=== PATIENT | male | born 1950 | race Caucasian/White ===

== ENCOUNTER 2019-06-30 12:37 | Emergency (ER) | payer MEDICARE, OTHER ==
--- NOTE | 2019-06-30 13:40 | EDM.PDOC ---
ED HPI GENERAL MEDICAL PROBLEM - General Chief Complaint: General Stated Complaint: HIGH B/P Time Seen by Provider: 06/30/19 13:40 Source of Information: Reports: Patient History Limitations: Reports: No Limitations - History of Present Illness INITIAL COMMENTS - FREE TEXT/NARRATIVE: HISTORY AND PHYSICAL: History of present illness: Patient is a 69-year-old male presents to the ED with complaint of elevated blood pressure. Patient states that yesterday he felt like he was dizzy and having an episode of vertigo so he checked his blood pressure. Patient states that his BP was elevated to 160 systolic. He states he has been up all night worried about his blood pressure and taking it every hour. He reports it has consistently been 150-160 systolic. He denies significant past medical history. He does smoke daily. He states he is no longer feeling dizzy. He denies chest pain, shortness of breath, headache, vertigo. EKG shows new onset atrial fibrillation, case signed over to Dr. Light for further evaluation Review of systems: As per history of present illness and below otherwise all systems reviewed and negative. Past medical history: As per history of present illness and as reviewed below otherwise noncontributory. Surgical history: As per history of present illness and as reviewed below otherwise noncontributory. Social history: No reported history of drug or alcohol abuse. Family history: As per history of present illness and as reviewed below otherwise noncontributory. Physical exam: General: Patient sitting comfortably in no acute distress and nontoxic appearing HEENT: Atraumatic, normocephalic, pupils reactive, negative for conjunctival pallor or scleral icterus, mucous membranes moist, throat clear, neck supple, nontender, trachea midline. No meningeal signs. Lungs: Clear to auscultation, breath sounds equal bilaterally, chest nontender. Heart: S1S2, irregular, negative for clicks, rubs, or overt murmur. Abdomen: Soft, nondistended, nontender. Negative for masses or hepatosplenomegaly. Negative for costovertebral tenderness. No rigidity, rebound , guarding. Pelvis: Stable nontender. Genitourinary: Deferred. Rectal: Deferred. Extremities: Atraumatic, negative for cords or calf pain. Neurovascular unremarkable. Neuro: Awake, alert, oriented. Cranial nerves II through XII unremarkable. Cerebellum unremarkable. Motor and sensory unremarkable throughout. Exam nonfocal. Notes: Diagnostics: EKG, CBC, CMP, Troponin, PT/INR Therapeutics: [] Prescriptions: Impression: [] Plan: [] Definitive disposition and diagnosis as appropriate pending reevaluation and review of above. - Related Data Allergies Allergy/AdvReac Type Severity Reaction Status Date / Time No Known Allergies Allergy Verified 06/30/19 13:13 Home Meds: Home Meds Aspirin [Lo-Dose Aspirin EC] 81 mg PO DAILY 06/30/19 [History] Past Medical History - Past Health History Medical/Surgical History: Denies Medical/Surgical History Other Respiratory History: Sleep apnea with CPAP machine Other Musculoskeletal History: Arthritis to Left hand, REcent treatment for GOUT injection and oral steroids completed 3 weeks ago(reports surgeon aware) - Past Surgical History Other GI Surgeries/Procedures: Inguinal Hernia Repair and umbilical hernia repair Social & Family History - Family History Family Medical History: Noncontributory - Tobacco Use Smoking Status *Q: Current Every Day Smoker Years of Tobacco use: 40 Packs/Tins Daily: 1 - Recreational Drug Use Recreational Drug Use: No ED ROS GENERAL - Review of Systems Review Of Systems: Comprehensive ROS is negative, except as noted in HPI. ED EXAM, GENERAL - Physical Exam Exam: See Below (see dictation) Course - Vital Signs Last Recorded V/S: Last Vital Signs Temp 97.1 F 06/30/19 13:12 Pulse 85 06/30/19 13:12 Resp 18 06/30/19 13:12 BP 141/97 H 06/30/19 13:12 Pulse Ox 94 L 06/30/19 13:12 - Orders/Labs/Meds Orders: Active Orders 24 hr Category Date Time Status Cardiac Monitoring [RC] . DIRECTED Care 06/30/19 13:55 Active EKG Documentation Completion [RC] STAT Care 06/30/19 13:39 Inactive EKG Documentation Completion [RC] STAT Care 06/30/19 13:45 Active COMPREHENSIVE METABOLIC PN,CMP [CHEM] Stat Lab 06/30/19 14:20 Received TROPONIN I [CHEM] Stat Lab 06/30/19 14:20 Received Sodium Chloride 0.9% [Saline Flush] Med 06/30/19 13:55 Active 10 ml FLUSH ASDIRECTED PRN Sodium Chloride 0.9% [Saline Flush] Med 06/30/19 13:55 Active 2.5 ml FLUSH ASDIRECTED PRN Saline Lock Insert [OM.PC] Stat Oth 06/30/19 13:55 Ordered Medication Orders Sodium Chloride (Saline Flush) 10 ml FLUSH ASDIRECTED PRN PRN Reason: Keep Vein Open Sodium Chloride (Saline Flush) 2.5 ml FLUSH ASDIRECTED PRN PRN Reason: Keep Vein Open Labs: Laboratory Tests 06/30/19 06/30/19 Range/Units 14:20 14:20 WBC 7.45 (4.0-11.0) K/uL RBC 5.35 (4.50-5.90) M/uL Hgb 17.1 H (13.0-17.0) g/dL Hct 48.9 (38.0-50.0) % MCV 91.4 (80.0-98.0) fL MCH 32.0 (27.0-32.0) pg MCHC 35.0 (31.0-37.0) g/dL RDW Std Deviation 45.3 (28.0-62.0) fl RDW Coeff of [place] 14 (11.0-15.0) % Plt Count 215 (150-400) K/uL MPV 9.90 (7.40-12.00) fL Neut % (Auto) 59.0 (48.0-80.0) % Lymph % (Auto) 28.6 (16.0-40.0) % [place] % (Auto) 8.5 (0.0-15.0) % Eos % (Auto) 3.6 (0.0-7.0) % Baso % (Auto) 0.3 (0.0-1.5) % Neut # (Auto) 4.4 (1.4-5.7) K/uL Lymph # (Auto) 2.1 (0.6-2.4) K/uL [place] # (Auto) 0.6 (0.0-0.8) K/uL Eos # (Auto) 0.3 (0.0-0.7) K/uL Baso # (Auto) 0.0 (0.0-0.1) K/uL Nucleated RBC % 0.0 /100WBC Nucleated RBCs # 0 K/uL INR 0.99 Meds: Medications Generic Name Dose Route Start Last Admin Trade Name Freq PRN Reason Stop Dose Admin Sodium Chloride 10 ml 06/30/19 13:55 Saline Flush FLUSH ASDIRECTED PRN Keep Vein Open Sodium Chloride 2.5 ml 06/30/19 13:55 Saline Flush FLUSH ASDIRECTED PRN Keep Vein Open Departure - Departure Time of Disposition: 13:52 Disposition: Home, Self-Care 01 Condition: Good Clinical Impression: Atrial fibrillation - Discharge Information Referrals: Benji Gould MD [Primary Care Provider] - Forms: ED Department Discharge Sepsis Event Note - Evaluation Sepsis Screening Result: No Definite Risk - Focused Exam Vital Signs: Vital Signs Temp Pulse Resp BP Pulse Ox 06/30/19 13:12 97.1 F 85 18 141/97 H 94 L Date Exam was Performed: 06/30/19 Time Exam was Performed: 14:45 - My Orders Last 24 Hours: My Active Orders 06/30/19 13:39 EKG Documentation Completion [RC] STAT 06/30/19 13:45 EKG Documentation Completion [RC] STAT 06/30/19 13:55 Cardiac Monitoring [RC] . DIRECTED Sodium Chloride 0.9% [Saline Flush] 10 ml FLUSH ASDIRECTED PRN Sodium Chloride 0.9% [Saline Flush] 2.5 ml FLUSH ASDIRECTED PRN Saline Lock Insert [OM.PC] Stat 06/30/19 14:20 COMPREHENSIVE METABOLIC PN,CMP [CHEM] Stat TROPONIN I [CHEM] Stat - Assessment/Plan Last 24 Hours: My Active Orders 06/30/19 13:39 EKG Documentation Completion [RC] STAT 06/30/19 13:45 EKG Documentation Completion [RC] STAT 06/30/19 13:55 Cardiac Monitoring [RC] . DIRECTED Sodium Chloride 0.9% [Saline Flush] 10 ml FLUSH ASDIRECTED PRN Sodium Chloride 0.9% [Saline Flush] 2.5 ml FLUSH ASDIRECTED PRN Saline Lock Insert [OM.PC] Stat 06/30/19 14:20 COMPREHENSIVE METABOLIC PN,CMP [CHEM] Stat TROPONIN I [CHEM] Stat
[2019-06-30] MEDS ORDERED: Sodium Chloride 0.9% 10 ML Syringe FLUSH PRN (13:55)
[2019-06-30] MEDS ORDERED: Sodium Chloride 0.9% 2.5 ML Syringe FLUSH PRN (13:55)
[2019-06-30 14:57] LABS: BLOOD UREA NITROGEN,BUN 23 mg/dL (7.0-18.0); CARBON DIOXIDE,CO2 26.4 mmol/L (21.0-32.0); CHLORIDE,CL 104 mmol/L (98-107); GLUCOSE RANDOM 105 mg/dL (74-106); POTASSIUM,K 4.5 mmol/L (3.5-5.1); SODIUM,NA 141 mmol/L (136-148)
[2019-06-30 15:54] VITALS: BP 134/89; PULSE 80
== END 2019-06-30 15:55 | disposition home or self-care (01) ==
LOC: MW.ED 12:37
DX: I48.91 Unspecified atrial fibrillation (principal); F17.210 Nicotine dependence, cigarettes, uncomplicated; Z79.82 Long term (current) use of aspirin
CPT/HCPCS: 80053; 84484; 85025; 85610; 93005; 99284; 99284-25

== ENCOUNTER 2019-07-14 11:09 | Observation (INO) | payer MEDICARE, OTHER ==
[2019-07-14] MEDS ORDERED: Sodium Chloride 0.9% 2.5 ML Syringe FLUSH PRN (11:16)
[2019-07-14] MEDS ORDERED: Sodium Chloride 0.9% 10 ML Syringe FLUSH PRN (11:16)
--- NOTE | 2019-07-14 11:23 | EDM.PDOC ---
ED HPI GENERAL MEDICAL PROBLEM - General Chief Complaint: Cardiovascular Problem Stated Complaint: SOB, HEART Time Seen by Provider: 07/14/19 11:12 Source of Information: Reports: Patient History Limitations: Reports: No Limitations - History of Present Illness INITIAL COMMENTS - FREE TEXT/NARRATIVE: Pt with a recent pmh of afib on eliquis presents with 2 days of generalized weakness and fatigue associated mild palpitations. Pt denies cp, sob, n/v/d, dyspnea on exertion or any other specific symptoms. - Related Data Allergies Allergy/AdvReac Type Severity Reaction Status Date / Time No Known Allergies Allergy Verified 07/14/19 11:16 Home Meds: Home Meds Apixaban [Eliquis] 5 mg PO BID 14 Days #28 tablet 06/30/19 [Rx] Aspirin [Lo-Dose Aspirin EC] 81 mg PO DAILY 06/30/19 [History] Past Medical History - Past Health History Medical/Surgical History: Denies Medical/Surgical History Other Respiratory History: Sleep apnea with CPAP machine Other Musculoskeletal History: Arthritis to Left hand, REcent treatment for GOUT injection and oral steroids completed 3 weeks ago(reports surgeon aware) - Past Surgical History Other GI Surgeries/Procedures: Inguinal Hernia Repair and umbilical hernia repair Social & Family History - Family History Family Medical History: Noncontributory ED ROS GENERAL - Review of Systems Review Of Systems: See Below Constitutional: Reports: Malaise, Weakness, Fatigue HEENT: Reports: No Symptoms Respiratory: Reports: No Symptoms Cardiovascular: Reports: Palpitations. Denies: Chest Pain, Dyspnea on Exertion GI/Abdominal: Reports: No Symptoms Musculoskeletal: Reports: No Symptoms Neurological: Denies: Dizziness, Headache, Numbness ED EXAM, GENERAL - Physical Exam Exam: See Below Exam Limited By: No Limitations General Appearance: Alert, WD/WN, No Apparent Distress Head: Atraumatic, Normocephalic Respiratory/Chest: No Respiratory Distress, Normal Breath Sounds, No Accessory Muscle Use Cardiovascular: No JVD, No Murmur, Irregularly Irregular GI/Abdominal: Soft, Non-Tender, No Distention Extremities: No Pedal Edema Neurological: Alert, Oriented, Normal Cognition Course - Vital Signs Last Recorded V/S: Last Vital Signs Temp 98.6 F 07/14/19 11:17 Pulse 85 07/14/19 11:17 Resp 18 07/14/19 11:17 BP 174/109 H 07/14/19 11:17 Pulse Ox 94 L 07/14/19 11:17 - Orders/Labs/Meds Orders: Active Orders 24 hr Category Date Time Status Admission Status [Patient Status] [ADT] Stat ADT 07/14/19 13:33 Active EKG Documentation Completion [RC] STAT Care 07/14/19 11:16 Active Sodium Chloride 0.9% [Saline Flush] Med 07/14/19 11:16 Active 10 ml FLUSH ASDIRECTED PRN Sodium Chloride 0.9% [Saline Flush] Med 07/14/19 11:16 Active 2.5 ml FLUSH ASDIRECTED PRN Saline Lock Insert [OM.PC] Stat Oth 07/14/19 11:16 Ordered Medication Orders Sodium Chloride (Saline Flush) 10 ml FLUSH ASDIRECTED PRN PRN Reason: Keep Vein Open Sodium Chloride (Saline Flush) 2.5 ml FLUSH ASDIRECTED PRN PRN Reason: Keep Vein Open Labs: Laboratory Tests 07/14/19 07/14/19 07/14/19 Range/Units 11:20 11:20 11:20 WBC 7.22 (4.0-11.0) K/uL RBC 4.96 (4.50-5.90) M/uL Hgb 15.6 (13.0-17.0) g/dL Hct 45.9 (38.0-50.0) % MCV 92.5 (80.0-98.0) fL MCH 31.5 (27.0-32.0) pg MCHC 34.0 (31.0-37.0) g/dL RDW Std Deviation 44.7 (28.0-62.0) fl RDW Coeff of [place] 13 (11.0-15.0) % Plt Count 275 (150-400) K/uL MPV 9.60 (7.40-12.00) fL Neut % (Auto) 67.8 (48.0-80.0) % Lymph % (Auto) 25.1 (16.0-40.0) % [place] % (Auto) 3.9 (0.0-15.0) % Eos % (Auto) 2.9 (0.0-7.0) % Baso % (Auto) 0.3 (0.0-1.5) % Neut # (Auto) 4.9 (1.4-5.7) K/uL Lymph # (Auto) 1.8 (0.6-2.4) K/uL [place] # (Auto) 0.3 (0.0-0.8) K/uL Eos # (Auto) 0.2 (0.0-0.7) K/uL Baso # (Auto) 0.0 (0.0-0.1) K/uL Nucleated RBC % 0.0 /100WBC Nucleated RBCs # 0 K/uL INR 1.05 Sodium 143 (136-148) mmol/L Potassium 4.8 (3.5-5.1) mmol/L Chloride 107 (98-107) mmol/L Carbon Dioxide 31.1 (21.0-32.0) mmol/L BUN 18 (7.0-18.0) mg/dL Creatinine 1.2 (0.8-1.3) mg/dL Est Cr Clr Drug Dosing 63.81 mL/min Estimated GFR (MDRD) 59.7 ml/min Glucose 158 H (74-106) mg/dL Calcium 9.2 (8.5-10.1) mg/dL Total Bilirubin 0.7 (0.2-1.0) mg/dL AST 23 (15-37) IU/L ALT 25 (14-63) IU/L Alkaline Phosphatase 90 (46-116) U/L Troponin I < 0.050 (0.000-0.056) ng/mL B-Natriuretic Peptide (<100) PG/ML Total Protein 6.9 (6.4-8.2) g/dL Albumin 3.4 (3.4-5.0) g/dL Globulin 3.5 (2.6-4.0) g/dL Albumin/Globulin Ratio 1.0 (0.9-1.6) Lipase 128 (73-393) U/L 07/14/19 Range/Units 11:20 WBC (4.0-11.0) K/uL RBC (4.50-5.90) M/uL Hgb (13.0-17.0) g/dL Hct (38.0-50.0) % MCV (80.0-98.0) fL MCH (27.0-32.0) pg MCHC (31.0-37.0) g/dL RDW Std Deviation (28.0-62.0) fl RDW Coeff of [place] (11.0-15.0) % Plt Count (150-400) K/uL MPV (7.40-12.00) fL Neut % (Auto) (48.0-80.0) % Lymph % (Auto) (16.0-40.0) % [place] % (Auto) (0.0-15.0) % Eos % (Auto) (0.0-7.0) % Baso % (Auto) (0.0-1.5) % Neut # (Auto) (1.4-5.7) K/uL Lymph # (Auto) (0.6-2.4) K/uL [place] # (Auto) (0.0-0.8) K/uL Eos # (Auto) (0.0-0.7) K/uL Baso # (Auto) (0.0-0.1) K/uL Nucleated RBC % /100WBC Nucleated RBCs # K/uL INR Sodium (136-148) mmol/L Potassium (3.5-5.1) mmol/L Chloride (98-107) mmol/L Carbon Dioxide (21.0-32.0) mmol/L BUN (7.0-18.0) mg/dL Creatinine (0.8-1.3) mg/dL Est Cr Clr Drug Dosing mL/min Estimated GFR (MDRD) ml/min Glucose (74-106) mg/dL Calcium (8.5-10.1) mg/dL Total Bilirubin (0.2-1.0) mg/dL AST (15-37) IU/L ALT (14-63) IU/L Alkaline Phosphatase (46-116) U/L Troponin I (0.000-0.056) ng/mL B-Natriuretic Peptide 277 H (<100) PG/ML Total Protein (6.4-8.2) g/dL Albumin (3.4-5.0) g/dL Globulin (2.6-4.0) g/dL Albumin/Globulin Ratio (0.9-1.6) Lipase (73-393) U/L Meds: Medications Generic Name Dose Route Start Last Admin Trade Name Freq PRN Reason Stop Dose Admin Sodium Chloride 10 ml 07/14/19 11:16 Saline Flush FLUSH ASDIRECTED PRN Keep Vein Open Sodium Chloride 2.5 ml 07/14/19 11:16 Saline Flush FLUSH ASDIRECTED PRN Keep Vein Open - Re-Assessments/Exams Free Text/Narrative Re-Assessment/Exam: 07/14/19 14:03 On further discussion, Pt and report the he has symptoms of shortness of breath when his heart rate is low on home monitoring. Dr. Medina consulted and pt admitted for further cardiology assessment. Departure - Departure Time of Disposition: 14:05 Disposition: Refer to Observation Condition: Good Clinical Impression: Atrial fibrillation, Shortness of breath Forms: ED Department Discharge Sepsis Event Note - Focused Exam Vital Signs: Vital Signs Temp Pulse Resp BP Pulse Ox 07/14/19 11:17 98.6 F 85 18 174/109 H 94 L Date Exam was Performed: 07/14/19 Time Exam was Performed: 14:02 - My Orders Last 24 Hours: My Active Orders 07/14/19 11:16 EKG Documentation Completion [RC] STAT Sodium Chloride 0.9% [Saline Flush] 10 ml FLUSH ASDIRECTED PRN Sodium Chloride 0.9% [Saline Flush] 2.5 ml FLUSH ASDIRECTED PRN Saline Lock Insert [OM.PC] Stat 07/14/19 13:33 Admission Status [Patient Status] [ADT] Stat - Assessment/Plan Last 24 Hours: My Active Orders 07/14/19 11:16 EKG Documentation Completion [RC] STAT Sodium Chloride 0.9% [Saline Flush] 10 ml FLUSH ASDIRECTED PRN Sodium Chloride 0.9% [Saline Flush] 2.5 ml FLUSH ASDIRECTED PRN Saline Lock Insert [OM.PC] Stat 07/14/19 13:33 Admission Status [Patient Status] [ADT] Stat
[2019-07-14 12:13] LABS: BLOOD UREA NITROGEN,BUN 18 mg/dL (7.0-18.0); CARBON DIOXIDE,CO2 31.1 mmol/L (21.0-32.0); CHLORIDE,CL 107 mmol/L (98-107); GLUCOSE RANDOM 158 mg/dL (74-106); LIPASE 128 U/L (73-393); POTASSIUM,K 4.8 mmol/L (3.5-5.1); SODIUM,NA 143 mmol/L (136-148)
--- NOTE | 2019-07-14 12:17 | CR ---
Chest: AP view of the chest was obtained. Comparison: Prior chest x-ray of 11/30/15. Parenchymal density within the lower right lung which is unchanged when compared to previous study which is felt to be incidental given the time interval from prior study. Lung markings are mildly increased which are accentuated from less than optimal inspiratory effort. Difficult to exclude minimal bronchitis. Heart size is within normal limits for AP technique. Tortuous thoracic aorta is seen. Impression: 1. Increased central lung markings which are accentuated from poor inspiratory effort. Difficult to exclude mild bronchitis. 2. Nothing acute is otherwise seen. Diagnostic code #2 This report was dictated in [place] Standard Time
[2019-07-14] MEDS ORDERED: Acetaminophen 325 MG Tab PO PRN (14:02)
[2019-07-14] MEDS ORDERED: Nicotine 14 MG/24 Hr Patch TRDERM PRN (14:02)
[2019-07-14] MEDS ORDERED: Docusate Sodium 100 MG Cap PO PRN (14:02)
[2019-07-14] MEDS ORDERED: Albuterol 0.083% 2.5 MG/3 ML Neb Soln NEB PRN (14:02)
[2019-07-14] MEDS ORDERED: Ibuprofen 600 MG Tab PO PRN (14:02)
[2019-07-14] MEDS ORDERED: Ondansetron 4 MG/2 ML SDV IVPUSH PRN (14:02)
[2019-07-14] MEDS ORDERED: Ondansetron 4 MG Tab.DIS PO PRN (14:02)
[2019-07-14] MEDS ORDERED: Polyethylene Glycol 3350 Powder 17 GM Packet PO PRN (14:02)
--- NOTE | 2019-07-14 14:10 | PCM.HP.2 ---
H&P History of Present Illness - General Date of Service: 07/14/19 Admit Problem/Dx: Admission Diagnosis/Problem Admission Diagnosis/Problem Atrial fibrillation - History of Present Illness Initial Comments - Free Text/Narative: 69 y/o male with recent diagnosis of Afib, rate controlled who presented to the ER with concern for his blood pressure the last couple of days. Patient states that his blood pressures have been in the SBP 150-160's. No chest pain, radiation to neck or arms. Recently traveled to [place] for his son's wedding. States that he has been taking Eliquis as indicated. No other prescriptions. Endorses orthopnea and dyspnea with exertion. States that he has been seeing his PCP [facility]. He does have a history of sleep apnea for which he uses CPAP at home. No fevers, cough, abdominal pain, dysuria, diarrhea, blood in stool, worsening swelling. - Related Data Allergies/Adverse Reactions: Allergies Allergy/AdvReac Type Severity Reaction Status Date / Time No Known Allergies Allergy Verified 07/14/19 11:16 Home Medications: Home Meds Apixaban [Eliquis] 5 mg PO BID 14 Days #28 tablet 06/30/19 [Rx] Aspirin [Lo-Dose Aspirin EC] 81 mg PO DAILY 06/30/19 [History] Past Medical History - Past Health History Medical/Surgical History: Denies Medical/Surgical History Cardiovascular History: Reports: Hypertension Other Cardiovascular History: AFIB Other Respiratory History: Sleep apnea with CPAP machine Other Musculoskeletal History: Arthritis to Left hand, REcent treatment for GOUT injection and oral steroids completed 3 weeks ago(reports surgeon aware) - Infectious Disease History Infectious Disease History: Reports: Measles - Past Surgical History Other GI Surgeries/Procedures: Inguinal Hernia Repair and umbilical hernia repair Social & Family History - Family History Family Medical History: Noncontributory - Tobacco Use Smoking Status *Q: Current Every Day Smoker Years of Tobacco use: 40 Packs/Tins Daily: 1 - Caffeine Use Caffeine Use: Reports: None - Recreational Drug Use Recreational Drug Use: No H&P Review of Systems - Review of Systems: Review Of Systems: Comprehensive ROS is negative, except as noted in HPI. Exam - Exam Exam: See Below - Vital Signs Vital Signs: Last Vital Signs Temp 37.0 C 07/14/19 11:17 Pulse 58 L 07/14/19 13:50 Resp 20 07/14/19 13:50 BP 142/89 H 07/14/19 13:50 Pulse Ox 95 07/14/19 13:50 Weight: 147.418 kg - Exam General: Alert, Oriented, Cooperative HEENT: Conjunctiva Clear, Mucosa Moist & [place] Lungs: Clear to Auscultation, Normal Respiratory Effort. No: Crackles, Wheezing GI/Abdominal Exam: Normal Bowel Sounds, Soft, Non-Tender, No Distention Extremities: Normal Inspection, Other (1+ pitting edema) Skin: Warm, Dry - Patient Data Lab Results Last 24 hrs: Laboratory Results - last 24 hr 07/14/19 07/14/19 07/14/19 Range/Units 11:20 11:20 11:20 WBC 7.22 (4.0-11.0) K/uL RBC 4.96 (4.50-5.90) M/uL Hgb 15.6 (13.0-17.0) g/dL Hct 45.9 (38.0-50.0) % MCV 92.5 (80.0-98.0) fL MCH 31.5 (27.0-32.0) pg MCHC 34.0 (31.0-37.0) g/dL RDW Std Deviation 44.7 (28.0-62.0) fl RDW Coeff of Daly 13 (11.0-15.0) % Plt Count 275 (150-400) K/uL MPV 9.60 (7.40-12.00) fL Neut % (Auto) 67.8 (48.0-80.0) % Lymph % (Auto) 25.1 (16.0-40.0) % [place] % (Auto) 3.9 (0.0-15.0) % Eos % (Auto) 2.9 (0.0-7.0) % Baso % (Auto) 0.3 (0.0-1.5) % Neut # (Auto) 4.9 (1.4-5.7) K/uL Lymph # (Auto) 1.8 (0.6-2.4) K/uL [place] # (Auto) 0.3 (0.0-0.8) K/uL Eos # (Auto) 0.2 (0.0-0.7) K/uL Baso # (Auto) 0.0 (0.0-0.1) K/uL Nucleated RBC % 0.0 /100WBC Nucleated RBCs # 0 K/uL INR 1.05 Sodium 143 (136-148) mmol/L Potassium 4.8 (3.5-5.1) mmol/L Chloride 107 (98-107) mmol/L Carbon Dioxide 31.1 (21.0-32.0) mmol/L BUN 18 (7.0-18.0) mg/dL Creatinine 1.2 (0.8-1.3) mg/dL Est Cr Clr Drug Dosing 63.81 mL/min Estimated GFR (MDRD) 59.7 ml/min Glucose 158 H (74-106) mg/dL Calcium 9.2 (8.5-10.1) mg/dL Total Bilirubin 0.7 (0.2-1.0) mg/dL AST 23 (15-37) IU/L ALT 25 (14-63) IU/L Alkaline Phosphatase 90 (46-116) U/L Troponin I < 0.050 (0.000-0.056) ng/mL B-Natriuretic Peptide (<100) PG/ML Total Protein 6.9 (6.4-8.2) g/dL Albumin 3.4 (3.4-5.0) g/dL Globulin 3.5 (2.6-4.0) g/dL Albumin/Globulin Ratio 1.0 (0.9-1.6) Lipase 128 (73-393) U/L 07/14/19 Range/Units 11:20 WBC (4.0-11.0) K/uL RBC (4.50-5.90) M/uL Hgb (13.0-17.0) g/dL Hct (38.0-50.0) % MCV (80.0-98.0) fL MCH (27.0-32.0) pg MCHC (31.0-37.0) g/dL RDW Std Deviation (28.0-62.0) fl RDW Coeff of Daly (11.0-15.0) % Plt Count (150-400) K/uL MPV (7.40-12.00) fL Neut % (Auto) (48.0-80.0) % Lymph % (Auto) (16.0-40.0) % [place] % (Auto) (0.0-15.0) % Eos % (Auto) (0.0-7.0) % Baso % (Auto) (0.0-1.5) % Neut # (Auto) (1.4-5.7) K/uL Lymph # (Auto) (0.6-2.4) K/uL [place] # (Auto) (0.0-0.8) K/uL Eos # (Auto) (0.0-0.7) K/uL Baso # (Auto) (0.0-0.1) K/uL Nucleated RBC % /100WBC Nucleated RBCs # K/uL INR Sodium (136-148) mmol/L Potassium (3.5-5.1) mmol/L Chloride (98-107) mmol/L Carbon Dioxide (21.0-32.0) mmol/L BUN (7.0-18.0) mg/dL Creatinine (0.8-1.3) mg/dL Est Cr Clr Drug Dosing mL/min Estimated GFR (MDRD) ml/min Glucose (74-106) mg/dL Calcium (8.5-10.1) mg/dL Total Bilirubin (0.2-1.0) mg/dL AST (15-37) IU/L ALT (14-63) IU/L Alkaline Phosphatase (46-116) U/L Troponin I (0.000-0.056) ng/mL B-Natriuretic Peptide 277 H (<100) PG/ML Total Protein (6.4-8.2) g/dL Albumin (3.4-5.0) g/dL Globulin (2.6-4.0) g/dL Albumin/Globulin Ratio (0.9-1.6) Lipase (73-393) U/L Result Diagrams: 07/14/19 11:20 07/14/19 11:20 Jj Results Last 24 hrs: Microbiology 07/14/19 12:09 Influenza Type A Antigen Screen - Final Nasopharyngeal Swab NEGATIVE INFLUENZA A VIRUS AG REFERENCE RANGE: NEGATIVE Influenza Type B Antigen Screen - Final NEGATIVE INFLUENZA B VIRUS AG REFERENCE RANGE: NEGATIVE Sepsis Event Note - Evaluation Sepsis Screening Result: No Definite Risk - Focused Exam Vital Signs: Vital Signs Temp Pulse Resp BP Pulse Ox 07/14/19 13:50 58 L 20 142/89 H 95 07/14/19 13:30 58 L 18 152/92 H 94 L 07/14/19 13:00 53 L 16 147/73 H 95 07/14/19 12:40 65 18 137/83 94 L 07/14/19 12:20 51 L 20 141/81 H 95 07/14/19 11:50 52 L 20 142/100 H 95 07/14/19 11:17 37.0 C 85 18 174/109 H 94 L Date Exam was Performed: 07/14/19 Time Exam was Performed: 15:06 Problem List Initiated/Reviewed/Updated: Yes Orders Last 24hrs: Active Orders 24 hr Category Date Time Status Admission Status [Patient Status] [ADT] Stat ADT 07/14/19 13:33 Active EKG Documentation Completion [RC] STAT Care 07/14/19 11:16 Active Intake and Output [RC] QSHIFT Care 07/14/19 14:02 Active Oxygen Therapy [RC] PRN Care 07/14/19 14:02 Active RT Aerosol Therapy [RC] ASDIRECTED Care 07/14/19 14:04 Active Telemetry Monitoring [Cardiac Monitoring] [RC] . Care 07/14/19 14:05 Active DIRECTED Up ad Melissa [RC] ASDIRECTED Care 07/14/19 14:02 Active VTE/DVT Education [RC] PER UNIT ROUTINE Care 07/14/19 14:02 Active Vital Signs [RC] Q4H Care 07/14/19 14:02 Active Heart Healthy Diet [DIET] Diet 07/14/19 Dinner Active Echo Comp wo Cont [US] Urgent Exams 07/14/19 14:05 Ordered GLYCOSYLATED HEMOGLOBIN,HGBA1C [CHEM] Stat Lab 07/14/19 14:06 Ordered LIPID PANEL [CHEM] AM Lab 07/15/19 05:11 Ordered TROPONIN I [CHEM] Q6H Lab 07/14/19 17:00 Ordered TROPONIN I [CHEM] Q6H Lab 07/14/19 23:00 Ordered TSH [CHEM] AM Lab 07/15/19 05:11 Ordered Acetaminophen [Tylenol] Med 07/14/19 14:02 Active 650 mg PO Q4H PRN Albuterol [Proventil Neb Soln] Med 07/14/19 14:02 Active 2.5 mg NEB Q2H PRN Apixaban [Eliquis] Med 07/14/19 21:00 Active 5 mg PO BID Docusate Sodium [Colace] Med 07/14/19 14:02 Active 100 mg PO BID PRN Ibuprofen [Motrin] Med 07/14/19 14:02 Active 600 mg PO Q6H PRN Nicotine [Habitrol] Med 07/14/19 14:02 Active 14 mg TRDERM DAILY PRN Ondansetron [Zofran ODT] Med 07/14/19 14:02 Active 4 mg PO Q4H PRN Ondansetron [Zofran] Med 07/14/19 14:02 Active 4 mg IVPUSH Q4H PRN Sodium Chloride 0.9% [Saline Flush] Med 07/14/19 11:16 Active 10 ml FLUSH ASDIRECTED PRN Sodium Chloride 0.9% [Saline Flush] Med 07/14/19 11:16 Active 2.5 ml FLUSH ASDIRECTED PRN lisinopriL [Prinivil] Med 07/14/19 14:15 Active 10 mg PO DAILY polyethylene glycoL 3350 [MiraLAX] Med 07/14/19 14:02 Active 17 gm PO DAILY PRN Saline Lock Insert [OM.PC] Stat Oth 07/14/19 11:16 Ordered Resuscitation Status Routine Resus Stat 07/14/19 14:02 Ordered Medication Orders Acetaminophen (Tylenol) 650 mg PO Q4H PRN PRN Reason: Pain (Mild 1-3)/fever Albuterol (Proventil Neb Soln) 2.5 mg NEB Q2H PRN PRN Reason: Shortness Of Breath/wheezing Apixaban (Eliquis) 5 mg PO BID JERRI Docusate Sodium (Colace) 100 mg PO BID PRN PRN Reason: Constipation Ibuprofen (Motrin) 600 mg PO Q6H PRN PRN Reason: Pain (mild 1-3) Lisinopril (Prinivil) 10 mg PO DAILY JERRI Nicotine (Habitrol) 14 mg TRDERM DAILY PRN PRN Reason: Other Ondansetron HCl (Zofran Odt) 4 mg PO Q4H PRN PRN Reason: nausea, able to take PO Ondansetron HCl (Zofran) 4 mg IVPUSH Q4H PRN PRN Reason: Nausea Polyethylene Glycol (Miralax) 17 gm PO DAILY PRN PRN Reason: Constipation Sodium Chloride (Saline Flush) 10 ml FLUSH ASDIRECTED PRN PRN Reason: Keep Vein Open Sodium Chloride (Saline Flush) 2.5 ml FLUSH ASDIRECTED PRN PRN Reason: Keep Vein Open Assessment/Plan Comment:: A: 1. Orthopnea 2. Hypertension 3. Atrial fibrillation, on Eliquis 4. PMH sleep apnea P: 1. Will monitor with telemetry overnight. Trend serial troponins. Will get Echo. Start lisinopril 10 mg PO daily for HTN. Continue Eliquis. Patient will get home CPAP machine. Plan to DC tomorrow.
[2019-07-14] MEDS ORDERED: Lisinopril 10 MG Tab PO SCH (14:15)
[2019-07-14 17:25] LABS: HEMOGLOBIN A1C 5.9 % (4.5-6.2)
[2019-07-14] MEDS: Apixaban 5 MG Tab PO SCH (20:00)
[2019-07-15 07:00] LABS: CARBON DIOXIDE,CO2 30.9 mmol/L (21.0-32.0)
[2019-07-15] MEDS: Apixaban 5 MG Tab PO SCH (08:30)
[2019-07-15] MEDS ORDERED: Lisinopril 10 MG Tab PO SCH (09:00)
--- NOTE | 2019-07-15 11:00 | PCM.DCSUM1 ---
<Andrew Toro - Last Filed: 07/15/19 10:57> Discharge Summary - Hospital Course Free Text/Narrative:: 69 y/o male with recently diagnosed Atrial fibrillation on Eliquis. Presented to the ER complaining of high blood pressure. Admitted for ACR rule. Serial troponins negative. Rate controlled HR 70-80's. Echo results pending at time of discharge. He was started on lisinopril 20 mg PO daily. In addition, his Eliquis was refilled. Advised to follow-up with his PCP and continue using on a regular basis his CPAP machine at night and to abstain from tobacco use. - Discharge Data Discharge Date: 07/15/19 Discharge Disposition: Home, Self-Care 01 Condition: Good - Referral to Home Health Primary Care Physician: Benji Gould MD - Patient Instructions Diet: Heart Healthy Diet Activity: As Tolerated Notify Provider of: Fever, Increased Pain, Swelling and Redness, Nausea and/or Vomiting - Discharge Plan Prescriptions/Med Rec: Apixaban [Eliquis] 5 mg PO Q12H 30 Days #60 tablet lisinopriL [Lisinopril] 20 mg PO DAILY 30 Days #30 tablet Home Medications: Home Meds Aspirin [Lo-Dose Aspirin EC] 81 mg PO DAILY 06/30/19 [History] Apixaban [Eliquis] 5 mg PO Q12H 30 Days #60 tablet 07/15/19 [Rx] lisinopriL [Lisinopril] 20 mg PO DAILY 30 Days #30 tablet 07/15/19 [Rx] Patient Handouts: Hypertension, [id number], Lisinopril tablets, Apixaban oral tablets, Atrial Fibrillation, [id number] Referrals: [facility] [Outside] Benji Gould MD [Primary Care Provider] - 07/21/19 2:15 pm - Discharge Summary/Plan Comment DC Time >30 min.: No - Patient Data Vitals - Most Recent: Last Vital Signs Temp 36.3 C 07/15/19 07:30 Pulse 73 07/15/19 07:30 Resp 18 07/15/19 07:30 BP 139/100 H 07/15/19 08:29 Pulse Ox 93 L 07/15/19 07:30 Weight - Most Recent: 147.418 kg I&O - Last 24 hours: Intake & Output 07/14/19 07/15/19 07/15/19 22:59 06:59 14:59 Intake Total 540 Balance 540 Lab Results - Last 24 hrs: Laboratory Results - last 24 hr 07/14/19 07/14/19 07/14/19 Range/Units 11:20 11:20 11:20 WBC 7.22 (4.0-11.0) K/uL RBC 4.96 (4.50-5.90) M/uL Hgb 15.6 (13.0-17.0) g/dL Hct 45.9 (38.0-50.0) % MCV 92.5 (80.0-98.0) fL MCH 31.5 (27.0-32.0) pg MCHC 34.0 (31.0-37.0) g/dL RDW Std Deviation 44.7 (28.0-62.0) fl RDW Coeff of Daly 13 (11.0-15.0) % Plt Count 275 (150-400) K/uL MPV 9.60 (7.40-12.00) fL Neut % (Auto) 67.8 (48.0-80.0) % Lymph % (Auto) 25.1 (16.0-40.0) % [place] % (Auto) 3.9 (0.0-15.0) % Eos % (Auto) 2.9 (0.0-7.0) % Baso % (Auto) 0.3 (0.0-1.5) % Neut # (Auto) 4.9 (1.4-5.7) K/uL Lymph # (Auto) 1.8 (0.6-2.4) K/uL [place] # (Auto) 0.3 (0.0-0.8) K/uL Eos # (Auto) 0.2 (0.0-0.7) K/uL Baso # (Auto) 0.0 (0.0-0.1) K/uL Nucleated RBC % 0.0 /100WBC Nucleated RBCs # 0 K/uL INR 1.05 Sodium 143 (136-148) mmol/L Potassium 4.8 (3.5-5.1) mmol/L Chloride 107 (98-107) mmol/L Carbon Dioxide 31.1 (21.0-32.0) mmol/L BUN 18 (7.0-18.0) mg/dL Creatinine 1.2 (0.8-1.3) mg/dL Est Cr Clr Drug Dosing 63.81 mL/min Estimated GFR (MDRD) 59.7 ml/min Glucose 158 H (74-106) mg/dL Hemoglobin A1c (4.5-6.2) % Calcium 9.2 (8.5-10.1) mg/dL Total Bilirubin 0.7 (0.2-1.0) mg/dL AST 23 (15-37) IU/L ALT 25 (14-63) IU/L Alkaline Phosphatase 90 (46-116) U/L Troponin I < 0.050 (0.000-0.056) ng/mL B-Natriuretic Peptide (<100) PG/ML Total Protein 6.9 (6.4-8.2) g/dL Albumin 3.4 (3.4-5.0) g/dL Globulin 3.5 (2.6-4.0) g/dL Albumin/Globulin Ratio 1.0 (0.9-1.6) Triglycerides (0-200) mg/dL Cholesterol (50-200) mg/dL LDL Cholesterol, Calc (60-180) mg/dL VLDL Cholesterol (5-55) mg/dL HDL Cholesterol (40-60) mg/dL Cholesterol/HDL Ratio (3.3-6.0) Lipase 128 (73-393) U/L TSH 3rd Generation (0.36-3.74) uIU/mL 07/14/19 07/14/19 07/14/19 Range/Units 11:20 17:10 17:10 WBC (4.0-11.0) K/uL RBC (4.50-5.90) M/uL Hgb (13.0-17.0) g/dL Hct (38.0-50.0) % MCV (80.0-98.0) fL MCH (27.0-32.0) pg MCHC (31.0-37.0) g/dL RDW Std Deviation (28.0-62.0) fl RDW Coeff of Daly (11.0-15.0) % Plt Count (150-400) K/uL MPV (7.40-12.00) fL Neut % (Auto) (48.0-80.0) % Lymph % (Auto) (16.0-40.0) % [place] % (Auto) (0.0-15.0) % Eos % (Auto) (0.0-7.0) % Baso % (Auto) (0.0-1.5) % Neut # (Auto) (1.4-5.7) K/uL Lymph # (Auto) (0.6-2.4) K/uL [place] # (Auto) (0.0-0.8) K/uL Eos # (Auto) (0.0-0.7) K/uL Baso # (Auto) (0.0-0.1) K/uL Nucleated RBC % /100WBC Nucleated RBCs # K/uL INR Sodium (136-148) mmol/L Potassium (3.5-5.1) mmol/L Chloride (98-107) mmol/L Carbon Dioxide (21.0-32.0) mmol/L BUN (7.0-18.0) mg/dL Creatinine (0.8-1.3) mg/dL Est Cr Clr Drug Dosing mL/min Estimated GFR (MDRD) ml/min Glucose (74-106) mg/dL Hemoglobin A1c 5.9 (4.5-6.2) % Calcium (8.5-10.1) mg/dL Total Bilirubin (0.2-1.0) mg/dL AST (15-37) IU/L ALT (14-63) IU/L Alkaline Phosphatase (46-116) U/L Troponin I < 0.050 (0.000-0.056) ng/mL B-Natriuretic Peptide 277 H (<100) PG/ML Total Protein (6.4-8.2) g/dL Albumin (3.4-5.0) g/dL Globulin (2.6-4.0) g/dL Albumin/Globulin Ratio (0.9-1.6) Triglycerides (0-200) mg/dL Cholesterol (50-200) mg/dL LDL Cholesterol, Calc (60-180) mg/dL VLDL Cholesterol (5-55) mg/dL HDL Cholesterol (40-60) mg/dL Cholesterol/HDL Ratio (3.3-6.0) Lipase (73-393) U/L TSH 3rd Generation (0.36-3.74) uIU/mL 07/14/19 07/15/19 07/15/19 Range/Units 23:11 06:05 06:05 WBC 8.24 (4.0-11.0) K/uL RBC 4.94 (4.50-5.90) M/uL Hgb 15.4 (13.0-17.0) g/dL Hct 45.4 (38.0-50.0) % MCV 91.9 (80.0-98.0) fL MCH 31.2 (27.0-32.0) pg MCHC 33.9 (31.0-37.0) g/dL RDW Std Deviation 44.1 (28.0-62.0) fl RDW Coeff of Daly 13 (11.0-15.0) % Plt Count 263 (150-400) K/uL MPV 9.30 (7.40-12.00) fL Neut % (Auto) 71.5 (48.0-80.0) % Lymph % (Auto) 17.1 (16.0-40.0) % [place] % (Auto) 7.4 (0.0-15.0) % Eos % (Auto) 3.8 (0.0-7.0) % Baso % (Auto) 0.2 (0.0-1.5) % Neut # (Auto) 5.9 H (1.4-5.7) K/uL Lymph # (Auto) 1.4 (0.6-2.4) K/uL [place] # (Auto) 0.6 (0.0-0.8) K/uL Eos # (Auto) 0.3 (0.0-0.7) K/uL Baso # (Auto) 0.0 (0.0-0.1) K/uL Nucleated RBC % 0.0 /100WBC Nucleated RBCs # 0 K/uL INR Sodium 143 (136-148) mmol/L Potassium 5.0 (3.5-5.1) mmol/L Chloride 108 H (98-107) mmol/L Carbon Dioxide 30.9 (21.0-32.0) mmol/L BUN 18 (7.0-18.0) mg/dL Creatinine 1.3 (0.8-1.3) mg/dL Est Cr Clr Drug Dosing 58.90 mL/min Estimated GFR (MDRD) 54.4 ml/min Glucose 100 (74-106) mg/dL Hemoglobin A1c (4.5-6.2) % Calcium 9.4 (8.5-10.1) mg/dL Total Bilirubin (0.2-1.0) mg/dL AST (15-37) IU/L ALT (14-63) IU/L Alkaline Phosphatase (46-116) U/L Troponin I < 0.050 (0.000-0.056) ng/mL B-Natriuretic Peptide (<100) PG/ML Total Protein (6.4-8.2) g/dL Albumin (3.4-5.0) g/dL Globulin (2.6-4.0) g/dL Albumin/Globulin Ratio (0.9-1.6) Triglycerides 87 (0-200) mg/dL Cholesterol 181 (50-200) mg/dL LDL Cholesterol, Calc 128 (60-180) mg/dL VLDL Cholesterol 17 (5-55) mg/dL HDL Cholesterol 36 L (40-60) mg/dL Cholesterol/HDL Ratio 5.0 (3.3-6.0) Lipase (73-393) U/L TSH 3rd Generation 1.11 (0.36-3.74) uIU/mL MARY Results - Last 24 hrs: Microbiology 07/14/19 12:09 Influenza Type A Antigen Screen - Final Nasopharyngeal Swab NEGATIVE INFLUENZA A VIRUS AG REFERENCE RANGE: NEGATIVE Influenza Type B Antigen Screen - Final NEGATIVE INFLUENZA B VIRUS AG REFERENCE RANGE: NEGATIVE Med Orders - Current: Current Medications Acetaminophen (Tylenol) 650 mg PO Q4H PRN PRN Reason: Pain (Mild 1-3)/fever Albuterol (Proventil Neb Soln) 2.5 mg NEB Q2H PRN PRN Reason: Shortness Of Breath/wheezing Apixaban (Eliquis) 5 mg PO BID [facility] Last Admin: 07/15/19 08:30 Dose: 5 mg Docusate Sodium (Colace) 100 mg PO BID PRN PRN Reason: Constipation Ibuprofen (Motrin) 600 mg PO Q6H PRN PRN Reason: Pain (mild 1-3) Lisinopril (Prinivil) 20 mg PO DAILY [facility] Last Admin: 07/15/19 08:29 Dose: 20 mg Nicotine (Habitrol) 14 mg TRDERM DAILY PRN PRN Reason: Other Ondansetron HCl (Zofran Odt) 4 mg PO Q4H PRN PRN Reason: nausea, able to take PO Ondansetron HCl (Zofran) 4 mg IVPUSH Q4H PRN PRN Reason: Nausea Polyethylene Glycol (Miralax) 17 gm PO DAILY PRN PRN Reason: Constipation Sodium Chloride (Saline Flush) 10 ml FLUSH ASDIRECTED PRN PRN Reason: Keep Vein Open Sodium Chloride (Saline Flush) 2.5 ml FLUSH ASDIRECTED PRN PRN Reason: Keep Vein Open Discontinued Medications Lisinopril (Prinivil) 10 mg PO DAILY [facility] Last Admin: 07/14/19 18:08 Dose: 10 mg <Andres Medina - Last Filed: 07/17/19 16:19> Discharge Summary - Referral to Home Health Primary Care Physician: Benji Gould MD - Patient Data Vitals - Most Recent: Last Vital Signs Temp 36.4 C 07/15/19 11:46 Pulse 80 07/15/19 11:46 Resp 18 07/15/19 11:46 BP 146/99 H 07/15/19 11:46 Pulse Ox 95 07/15/19 11:46 Med Orders - Current: Current Medications Discontinued Medications Acetaminophen (Tylenol) 650 mg PO Q4H PRN PRN Reason: Pain (Mild 1-3)/fever Albuterol (Proventil Neb Soln) 2.5 mg NEB Q2H PRN PRN Reason: Shortness Of Breath/wheezing Apixaban (Eliquis) 5 mg PO BID [facility] Last Admin: 07/15/19 08:30 Dose: 5 mg Docusate Sodium (Colace) 100 mg PO BID PRN PRN Reason: Constipation Ibuprofen (Motrin) 600 mg PO Q6H PRN PRN Reason: Pain (mild 1-3) Lisinopril (Prinivil) 10 mg PO DAILY [facility] Last Admin: 07/14/19 18:08 Dose: 10 mg Lisinopril (Prinivil) 20 mg PO DAILY [facility] Last Admin: 07/15/19 08:29 Dose: 20 mg Nicotine (Habitrol) 14 mg TRDERM DAILY PRN PRN Reason: Other Ondansetron HCl (Zofran Odt) 4 mg PO Q4H PRN PRN Reason: nausea, able to take PO Ondansetron HCl (Zofran) 4 mg IVPUSH Q4H PRN PRN Reason: Nausea Polyethylene Glycol (Miralax) 17 gm PO DAILY PRN PRN Reason: Constipation Sodium Chloride (Saline Flush) 10 ml FLUSH ASDIRECTED PRN PRN Reason: Keep Vein Open Sodium Chloride (Saline Flush) 2.5 ml FLUSH ASDIRECTED PRN PRN Reason: Keep Vein Open - Free Text/Narrative Note: I have seen and examined the patient with the resident. I have discussed the findings and treatment plan with the resident. I agree with the assessment and plan as outlined in the following note.
[2019-07-15 11:51] VITALS: BP 146/99; PULSE 80
--- NOTE | 2019-07-16 15:32 | ECHO ---
EXAM DATE: 07/14/19 PATIENT'S AGE: 69 The echocardiogram report can be seen in this patient's EMR (Electronic Medical Record) in the REPORTS section. The report has also been scanned into PACs. SHIRLEY
== END 2019-07-15 12:45 | disposition home or self-care (01) ==
LOC: MW.ED 11:09 → MW.MS 13:33
PROVIDERS: ADMIT Internal Medicine; ATTEND Internal Medicine
DX: I48.91 Unspecified atrial fibrillation (principal); R06.01 Orthopnea; I10 Essential (primary) hypertension; M10.9 Gout, unspecified; G47.30 Sleep apnea, unspecified; M19.042 Primary osteoarthritis, left hand; F17.200 Nicotine dependence, unspecified, uncomplicated; Z99.89 Dependence on other enabling machines and devices; Z79.52 Long term (current) use of systemic steroids; Z79.01 Long term (current) use of anticoagulants; Z79.82 Long term (current) use of aspirin
CPT/HCPCS: 36415; 71045; 80048; 80053; 80061; 83036; 83690; 83880; 84443; 84484; 85025; 85610; 87804; 93005; 93306; 99285; A9270; G0378; 99284

== ENCOUNTER 2020-03-09 11:16 | Emergency (ER) | payer MEDICARE, OTHER ==
--- NOTE | 2020-03-09 11:44 | EDM.PDOC ---
ED HPI GENERAL MEDICAL PROBLEM - General Chief Complaint: Cardiovascular Problem Stated Complaint: HEART PALPITATION Time Seen by Provider: 03/09/20 11:22 Source of Information: Reports: Patient History Limitations: Reports: No Limitations - History of Present Illness INITIAL COMMENTS - FREE TEXT/NARRATIVE: Presents reporting elevated blood pressure. The patient states that he has been taking his blood pressure at home he noticed it was up a little bit yesterday particularly the lower number. He brings in a record with the following entries: 148/103, 140/105, 146/94, 139/95, 135/93, 136/89, 150/105 and 139/95. He went over to the [place] [facility] this morning. There he revealed that he does not have palpitations or chest pain but a little "prick" in his chest now and then. Provider over there told him he would have to come to the emergency room. He has a history of atrial fibrillation rate controlled with atenolol and anticoagulated with apixaban. Also a history of tobacco habituation, peripheral neuropathy, obesity and BPH. He states yesterday he did not do anything but sit around and watch baseball, nothing out of the ordinary. He has been asymptomatic without nausea, chest pain, shortness of breath, sweating or any other symptoms. - Related Data Allergies Allergy/AdvReac Type Severity Reaction Status Date / Time No Known Allergies Allergy Verified 03/09/20 11:37 Home Meds: Home Meds Aspirin [Lo-Dose Aspirin EC] 81 mg PO DAILY 06/30/19 [History] Apixaban [Eliquis] 5 mg PO Q12H 30 Days #60 tablet 07/15/19 [Rx] Finasteride 1 tab PO DAILY 03/09/20 [History] Losartan [Cozaar] 50 mg PO DAILY 30 Days #30 tab 03/09/20 [Rx] Tamsulosin [Flomax] 0.4 mg PO DAILY 03/09/20 [History] atenoloL [Atenolol] 25 mg PO DAILY 03/09/20 [History] Past Medical History - Past Health History Medical/Surgical History: Denies Medical/Surgical History HEENT History: Reports: Hard of Hearing, Other (See Below) Other HEENT History: with bilateral hearing aids Cardiovascular History: Reports: Hypertension Other Cardiovascular History: AFIB Other Respiratory History: Sleep apnea with CPAP machine Gastrointestinal History: Reports: None Musculoskeletal History: Reports: Arthritis Other Musculoskeletal History: Arthritis to Left hand, REcent treatment for GOUT injection and oral steroids completed 3 weeks ago(reports surgeon aware) - Infectious Disease History Infectious Disease History: Reports: Measles - Past Surgical History Other GI Surgeries/Procedures: Inguinal Hernia Repair and umbilical hernia repair Social & Family History - Family History Family Medical History: Noncontributory - Caffeine Use Caffeine Use: Reports: None Caffeine Use Comment: 1 cup daily ED ROS GENERAL - Review of Systems Review Of Systems: Comprehensive ROS is negative, except as noted in HPI. ED EXAM, GENERAL - Physical Exam Exam: See Below Exam Limited By: No Limitations General Appearance: Alert, No Apparent Distress Ears: Normal External Exam Nose: Normal Inspection Throat/Mouth: Normal Inspection Head: Atraumatic, Normocephalic Neck: Normal Inspection Respiratory/Chest: No Respiratory Distress, Lungs Clear, Normal Breath Sounds Cardiovascular: Normal Peripheral Pulses, No Murmur, Other (1+ contreras edema) Back Exam: Normal Inspection Extremities: Normal Inspection Neurological: Alert, Oriented Psychiatric: Normal Affect, Normal Mood Skin Exam: Warm, Dry, Intact, Normal Color, No Rash Lymphatic: No Adenopathy #1 Interpretation EKG Date: 03/09/20 Time: 12:27 Rhythm: A-Fib Rate (Beats/Min): 52 [place]: Normal QRS: RBBB Comparison: No Change Course - Vital Signs Last Recorded V/S: Last Vital Signs Temp 36.2 C 03/09/20 11:37 Pulse 77 03/09/20 11:37 Resp 17 03/09/20 11:37 BP 126/97 H 03/09/20 11:37 Pulse Ox 96 03/09/20 11:37 - Orders/Labs/Meds Orders: Active Orders 24 hr Category Date Time Status EKG Documentation Completion [RC] STAT Care 03/09/20 11:38 Active Labs: Laboratory Tests 03/09/20 03/09/20 Range/Units 11:59 11:59 WBC 5.79 (4.0-11.0) K/uL RBC 4.87 (4.50-5.90) M/uL Hgb 15.4 (13.0-17.0) g/dL Hct 45.3 (38.0-50.0) % MCV 93.0 (80.0-98.0) fL MCH 31.6 (27.0-32.0) pg MCHC 34.0 (31.0-37.0) g/dL RDW Std Deviation 45.3 (28.0-62.0) fl RDW Coeff of [place] 13 (11.0-15.0) % Plt Count 211 (150-400) K/uL MPV 9.40 (7.40-12.00) fL Neut % (Auto) 62.9 (48.0-80.0) % Lymph % (Auto) 25.9 (16.0-40.0) % [place] % (Auto) 8.1 (0.0-15.0) % Eos % (Auto) 2.9 (0.0-7.0) % Baso % (Auto) 0.2 (0.0-1.5) % Neut # (Auto) 3.6 (1.4-5.7) K/uL Lymph # (Auto) 1.5 (0.6-2.4) K/uL [place] # (Auto) 0.5 (0.0-0.8) K/uL Eos # (Auto) 0.2 (0.0-0.7) K/uL Baso # (Auto) 0.0 (0.0-0.1) K/uL Nucleated RBC % 0.0 /100WBC Nucleated RBCs # 0 K/uL Sodium 140 (136-148) mmol/L Potassium 4.2 (3.5-5.1) mmol/L Chloride 106 (98-107) mmol/L Carbon Dioxide 24.1 (21.0-32.0) mmol/L BUN 17 (7.0-18.0) mg/dL Creatinine 1.2 (0.8-1.3) mg/dL Est Cr Clr Drug Dosing TNP Estimated GFR (MDRD) 59.7 ml/min Glucose 99 (74-106) mg/dL Calcium 8.9 (8.5-10.1) mg/dL Total Bilirubin 1.2 H (0.2-1.0) mg/dL AST 22 (15-37) IU/L ALT 29 (14-63) IU/L Alkaline Phosphatase 80 (46-116) U/L Troponin I < 0.050 (0.000-0.056) ng/mL Total Protein 6.8 (6.4-8.2) g/dL Albumin 3.5 (3.4-5.0) g/dL Globulin 3.3 (2.6-4.0) g/dL Albumin/Globulin Ratio 1.1 (0.9-1.6) - Re-Assessments/Exams Free Text/Narrative Re-Assessment/Exam: 03/09/20 13:10 She has been completely asymptomatic in the emergency room and is in fact sleeping. Agrees to keep pressure record once a day, make an appointment with his primary care provider, start the new medication and take once daily. Departure - Departure Time of Disposition: 13:11 Disposition: Home, Self-Care 01 Condition: Good Clinical Impression: Elevated blood pressure reading Prescriptions: Losartan [Cozaar] 50 mg PO DAILY 30 Days #30 tab Referrals: Benji Gould MD [Primary Care Provider] - Forms: ED Department Discharge Additional Instructions: The following information is given to patients seen in the emergency department who are being discharged to home. This information is to outline your options for follow-up care. We provide all patients seen in our emergency department with a follow-up referral. The need for follow-up, as well as the timing and circumstances, are variable depending upon the specifics of your emergency department visit. If you don't have a primary care physician on staff, we will provide you with a referral. We always advise you to contact your personal physician following an emergency department visit to inform them of the circumstance of the visit and for follow-up with them and/or the need for any referrals to a consulting specialist. The emergency department will also refer you to a specialist when appropriate. This referral assures that you have the opportunity for follow-up care with a specialist. All of these measure are taken in an effort to provide you with optimal care, which includes your follow-up. Under all circumstances we always encourage you to contact your private physician who remains a resource for coordinating your care. When calling for follow-up care, please make the office aware that this follow-up is from your recent emergency room visit. If for any reason you are refused follow-up, please contact the [facility] Emergency Department at and asked to speak to the emergency department charge nurse. 1. Make an appointment with your primary care provider. Check your blood pressure once daily and record. Take your blood pressure record and the labs that we did today with you to your primary care appointment. 2. Take losartan (Cozaar) once daily. Primary care provider may adjust your medications based on your blood pressure record. 3. Signs to return to the ER include: Chest pain, palpitations, headache, shortness of breath. Sepsis Event Note (ED) - Focused Exam Vital Signs: Vital Signs Temp Pulse Resp BP Pulse Ox 03/09/20 11:37 36.2 C 77 17 126/97 H 96 - My Orders Last 24 Hours: My Active Orders 03/09/20 11:38 EKG Documentation Completion [RC] STAT - Assessment/Plan Last 24 Hours: My Active Orders 03/09/20 11:38 EKG Documentation Completion [RC] STAT
[2020-03-09 12:44] LABS: BLOOD UREA NITROGEN,BUN 17 mg/dL (7.0-18.0); CARBON DIOXIDE,CO2 24.1 mmol/L (21.0-32.0); CHLORIDE,CL 106 mmol/L (98-107); GLUCOSE RANDOM 99 mg/dL (74-106); POTASSIUM,K 4.2 mmol/L (3.5-5.1); SODIUM,NA 140 mmol/L (136-148)
[2020-03-09 13:21] VITALS: BP 120/93; PULSE 60
--- NOTE | 2020-03-09 14:24 | PCM.SN.2 ---
- Free Text/Narrative Note: My EKG interpretation: Obtained on March 09, 2020 at 1211 interpreted at 1215 demonstrates atrial fibrillation with ventricular rate of 52 with a right bundle branch block this is unchanged from prior no evidence of acute ischemia.
== END 2020-03-09 13:21 | disposition home or self-care (01) ==
LOC: MW.ED 11:16
DX: I10 Essential (primary) hypertension (principal); I48.91 Unspecified atrial fibrillation; N40.0 Benign prostatic hyperplasia without lower urinary tract symptoms; E66.9 Obesity, unspecified; Z79.82 Long term (current) use of aspirin; Z79.899 Other long term (current) drug therapy
CPT/HCPCS: 36415; 80053; 84484; 85025; 93005; 93010; 99283; 99283-25

== ENCOUNTER 2021-03-04 06:33 | Day surgery (SDC) | payer OTHER, MEDICARE ==
[~2021-03-04 06:33] MED LIST: Lactated Ringers 1,000 ML IV SCH
[2021-03-04] MEDS ORDERED: fentaNYL 100 MCG/2 ML SDV ONE (06:51)
[2021-03-04] MEDS ORDERED: Propofol 200 MG/20 ML SDV ONE (06:51)
[2021-03-04] MEDS ORDERED: Midazolam 1 MG/ML 2 ML SDV ONE (06:51)
--- NOTE | 2021-03-04 07:47 | PCM.PREANE ---
Preanesthetic Assessment - Anesthesia/Transfusion/Family Hx Anesthesia History: Prior Anesthesia Without Reaction Other Type of Anesthesia Reaction Comment: Deneis any known problem in past Transfusion History: No Prior Transfusion(s) - Review of Systems General: No Symptoms Pulmonary: No Symptoms Cardiovascular: No Symptoms Gastrointestinal: No Symptoms Neurological: No Symptoms Other: Reports: None - Physical Assessment NPO Status Date: 03/04/21 NPO Status Time: 00:00 Vital Signs: Last Vital Signs Temp 96.6 F L 03/04/21 06:47 Pulse 72 03/04/21 06:47 Resp 16 03/04/21 06:47 BP 139/85 03/04/21 06:47 Pulse Ox 95 03/04/21 06:47 Height: 6 ft 1 in Weight: 314 lb ASA Class: 3 Mental Status: Alert & Oriented x3 Airway Class: Mallampati = 2 Dentition: Reports: Normal Dentition ROM/Head Extension: Full Lungs: Clear to Auscultation, Normal Respiratory Effort Cardiovascular: Regular Rate, Regular Rhythm - Allergies Allergies/Adverse Reactions: Allergies Allergy/AdvReac Type Severity Reaction Status Date / Time No Known Allergies Allergy Verified 02/28/21 11:36 - Acknowledgements Anesthesia Type Planned: General Anesthesia Pt an Appropriate Candidate for the Planned Anesthesia: Yes Alternatives and Risks of Anesthesia Discussed w Pt/Guardian: Yes Pt/Guardian Understands and Agrees with Anesthesia Plan: Yes PreAnesthesia Questionnaire - Past Health History Medical/Surgical History: Denies Medical/Surgical History HEENT History: Reports: Cataract, Hard of Hearing, Other (See Below) Other HEENT History: uses reading glasses and has bilateral hearing aids, has upper and lower dentures Cardiovascular History: Reports: Afib Other Cardiovascular History: takes Atenolol and Losartan for A-Fib, had recent Cardioversion with no success Respiratory History: Reports: Sleep Apnea Other Respiratory History: Sleep apnea with CPAP machine Gastrointestinal History: Reports: None Genitourinary History: Reports: BPH Musculoskeletal History: Reports: Arthritis, Gout Neurological History: Reports: None Psychiatric History: Reports: None Endocrine/Metabolic History: Reports: Obesity/BMI 30+ Hematologic History: Reports: Anticoagulation Therapy Immunologic History: Reports: None Oncologic (Cancer) History: Reports: None Dermatologic History: Reports: None - Infectious Disease History Infectious Disease History: Reports: Measles - Past Surgical History Head Surgeries/Procedures: Reports: None HEENT Surgical History: Reports: Cataract Surgery, Tonsillectomy Cardiovascular Surgical History: Reports: None Respiratory Surgical History: Reports: Other (See Below) Other Respiratory Surgeries/Procedures: recent Bronchoscopy GI Surgical History: Reports: Colonoscopy, Hernia, Inguinal, Hernia Repair/Other Other GI Surgeries/Procedures: Inguinal Hernia Repair and umbilical hernia repair Male Surgical History: Reports: None Endocrine Surgical History: Reports: None Musculoskeletal Surgical History: Reports: None Oncologic Surgical History: Reports: None - SUBSTANCE USE Tobacco Use Status *Q: Current Every Day Tobacco User Tobacco Use Within Last Twelve Months: Cigarettes Recreational Drug Use History: No - HOME MEDS Home Medications: Home Meds Aspirin [Lo-Dose Aspirin EC] 81 mg PO DAILY 06/30/19 [History] Apixaban [Eliquis] 5 mg PO Q12H 30 Days #60 tablet 07/15/19 [Rx] Finasteride 5 mg PO DAILY 03/09/20 [History] atenoloL [Atenolol] 25 mg PO DAILY 03/09/20 [History] Fish Oil/[place]-3 Fatty Acids [Fish Oil 1,000 MG] 1,000 mg PO DAILY 02/28/21 [History] Losartan/Hydrochlorothiazide [Losartan-HCTZ 100-12.5 MG] 1 tab PO DAILY 02/28/21 [History] - CURRENT (IN HOUSE) MEDS Current Meds: Current Medications Lactated Ringer's (Ringers, Lactated) 1,000 mls @ 125 mls/hr IV ASDIRECTED [facility] Last Admin: 03/04/21 06:52 Dose: 125 mls/hr Documented by: Discontinued Medications Fentanyl (Fentanyl 100 Mcg/2 Ml Sdv) Confirm Administered Dose 100 mcg .ROUTE .STK-MED ONE Stop: 03/04/21 06:52 Midazolam HCl (Midazolam 1 Mg/Ml 2 Ml Sdv) Confirm Administered Dose 2 mg .ROUTE .STK-MED ONE Stop: 03/04/21 06:52 Propofol (Propofol 200 Mg/20 Ml Sdv) Confirm Administered Dose 400 mg .ROUTE .STK-MED ONE Stop: 03/04/21 06:52
--- NOTE | 2021-03-04 08:40 | PCM48HPAN ---
Post Anesthesia Note - EVALUATION WITHIN 48HRS OF ANESTHETIC Vital Signs in Normal Range: Yes Patient Participated in Evaluation: Yes Respiratory Function Stable: Yes Airway Patent: Yes Cardiovascular Function Stable: Yes Hydration Status Stable: Yes Pain Control Satisfactory: Yes Nausea and Vomiting Control Satisfactory: Yes Mental Status Recovered: Yes Vital Signs: Last Vital Signs Temp 96.6 F L 03/04/21 06:47 Pulse 72 03/04/21 06:47 Resp 16 03/04/21 06:47 BP 139/85 03/04/21 06:47 Pulse Ox 95 03/04/21 06:47
--- NOTE | 2021-03-04 08:40 | PCM.POSTAN ---
POST ANESTHESIA ASSESSMENT - MENTAL STATUS Mental Status: Alert, Oriented - VITAL SIGNS Vital Signs: Last Vital Signs Temp 96.6 F L 03/04/21 06:47 Pulse 72 03/04/21 06:47 Resp 16 03/04/21 06:47 BP 139/85 03/04/21 06:47 Pulse Ox 95 03/04/21 06:47 - RESPIRATORY Respiratory Status: Respiratory Rate WNL, Airway Patent, O2 Saturation Stable - CARDIOVASCULAR CV Status: Pulse Rate WNL, Blood Pressure Stable - GASTROINTESTINAL GI Status: No Symptoms - POST OP HYDRATION Hydration Status: Adequate & Stable
--- NOTE | 2021-03-04 08:42 | PCM.OPNOTE ---
- General Post-Op/Procedure Note Date of Surgery/Procedure: 03/04/21 Operative Procedure(s): Colonoscopy with cold proximal and distal sigmoid polypectomies Pre Op Diagnosis: Personal history of colon polyps Post-Op Diagnosis: Sigmoid polyp 2 Anesthesia Technique: MAC (ASA III) Primary Surgeon: Ryan Borjas Rn Examiner: Seven Massey Condition: Good Free Text/Narrative:: DICTATION 310993 CPT CODE 56212
[2021-03-04] MEDS ORDERED: Lactated Ringers 1,000 ML IV SCH (08:45)
[2021-03-04 08:54] VITALS: BP 114/59; PULSE 50
--- NOTE | 2021-03-04 11:24 | OR ---
SURGEON: Ryan Borjas M.D. DATE OF PROCEDURE: 03/04/2021 OPERATION PERFORMED: Colonoscopy with cold sigmoid polypectomy x2. PRIMARY SURGEON: Ryan Borjas M.D. ANESTHESIA: MAC. ASA CLASSIFICATION: III. PREOPERATIVE DIAGNOSIS: Personal history of colon polyps. POSTOPERATIVE DIAGNOSES: 1. Proximal sigmoid polyp. 2. Distal sigmoid polyp. DESCRIPTION OF PROCEDURE: The patient was taken to the endoscopy room and positioned on the endoscopy table in the left lateral decubitus position. Time-out was called for appropriate identification of the patient and procedure. Monitored anesthesia care was provided. The colonoscope was inserted into the rectum and advanced with minimal difficulty to the cecum. The cecum was identified by internal landmarks and external pressure. The colonoscope was retroflexed to visualize the ascending colon from below, then straightened and slowly withdrawn. The cecum, ascending colon, hepatic flexure, transverse colon, splenic flexure, and descending colon showed no tumors, polyps, diverticula, or angiodysplastic changes. Two small polyps were encountered in the sigmoid colon, one proximally and one distally. These were serially removed with cold biopsy forceps and sent for separate histologic analysis. No sigmoid diverticula were noted. The colonoscope was then withdrawn to the rectum and retroflexed to visualize the anal orifice from above. Again, no tumors or polyps were seen, and there were no acute hemorrhoidal changes. The colonoscope was then straightened, the rectum aspirated, and the colonoscope removed. The patient tolerated the procedure well and was taken to recovery room in satisfactory condition. JUANITA / ELISE /[id number]
== END 2021-03-04 09:12 | disposition home or self-care (01) ==
LOC: MW.SDS 06:33
PROVIDERS: ATTEND Surgery
DX: Z12.11 Encounter for screening for malignant neoplasm of colon (principal); D12.5 Benign neoplasm of sigmoid colon; M10.9 Gout, unspecified; E66.01 Morbid (severe) obesity due to excess calories; F17.210 Nicotine dependence, cigarettes, uncomplicated; J44.9 Chronic obstructive pulmonary disease, unspecified; I48.91 Unspecified atrial fibrillation; G47.30 Sleep apnea, unspecified; Z79.82 Long term (current) use of aspirin; Z68.41 Body mass index [BMI] 40.0-44.9, adult; Z79.01 Long term (current) use of anticoagulants; Z79.899 Other long term (current) drug therapy; Z98.890 Other specified postprocedural states
CPT/HCPCS: 45380; 88305; J2250; J2704; J3010; J7120; 00812; 99100

== ENCOUNTER 2024-01-06 19:23 | Observation (INO) | payer OTHER, MEDICARE ==
[2024-01-06 19:44] LABS: BASOPHILS ABSOLUTE AUTO 0.04 K/uL (0.00-0.20); BASOPHILS PERCENT AUTO 0.5 % (0.0-1.0); EOSINOPHILS PERCENT AUTO 2.3 % (0.0-6.0); HEMATOCRIT 42.1 % (42.0-52.0); HEMOGLOBIN 14.3 g/dL (14.0-18.0); IMMATURE GRAN ABSOLUTE AUTO 0.03 K/uL (0.00-0.05); IMMATURE GRAN PERCENT AUTO 0.3 % (0.0-0.4); LYMPHOCYTES ABSOLUTE AUTO 1.86 K/uL (1.00-4.80); LYMPHOCYTES PERCENT AUTO 21.1 % (24.0-44.0); MEAN CORPUSCULAR HEMOGLOBIN 30.7 pg (28.0-32.0); MEAN CORPUSCULAR VOLUME 90.3 fL (83.0-99.0); MEAN PLATELET VOLUME 9.1 fL (9.4-12.4); MONOCYTES ABSOLUTE AUTO 0.67 K/uL (0.00-0.80); MONOCYTES PERCENT AUTO 7.6 % (0.0-8.0); NEUTROPHILS ABSOLUTE AUTO 6.02 K/uL (1.80-7.70); NEUTROPHILS PERCENT AUTO 68.2 % (41.0-71.0); PLATELET COUNT,PLT 250 K/uL (150-400); RED BLOOD CELL COUNT 4.66 M/uL (4.52-5.90); WHITE BLOOD CELL COUNT,WBC 8.82 K/uL (3.9-11.3)
[2024-01-06] MEDS: Sodium Chloride 0.9% 2.5 ML Syringe FLUSH PRN (19:51)
[2024-01-06] MEDS: Sodium Chloride 0.9% 10 ML Syringe FLUSH PRN (19:51)
[2024-01-06] MEDS: Sodium Chloride 0.9% 1,000 ML IV ONE (19:51)
[2024-01-06 20:00] LABS: BASE EXCESS VENOUS 3.7 (-2.0-3.0); PH,VENOUS 7.47 (7.31-7.41)
[2024-01-06 20:12] LABS: ALBUMIN 3.7 g/dL (3.4-5.0); BILIRUBIN TOTAL 1.9 mg/dL (0.2-1.0); CALCIUM 9.6 mg/dL (8.5-10.1); CARBON DIOXIDE,CO2 27.5 mmol/L (21.0-32.0); CREATININE 1.5 mg/dL (0.8-1.3); EST CRCL DRUG DOSING (CG) 49.47 mL/min; MAGNESIUM 1.7 mg/dL (1.8-2.4); POTASSIUM,K 4.5 mmol/L (3.5-5.1); PROTEIN TOTAL,TP 7.3 g/dL (6.4-8.2)
[2024-01-06 20:39] LABS: LACTIC ACID 1.5 mmol/L (0.4-2.0)
[2024-01-06] MEDS: Piperacillin/Tazobactam 4.5 GM in Sodium Chloride 0.9% 100 ML IV ONE (21:03)
[2024-01-06] MEDS: Acetaminophen 500 MG Tab PO ONE (21:30)
[2024-01-07] MEDS ORDERED: REMDESIVIR 200 MG in Sodium Chloride 0.9% 250 ML IV ONE (00:28)
[2024-01-07] MEDS: Iopamidol 755 MG/ML 500 ML Multipack Bottle IVPUSH ONE (00:35)
[2024-01-07] MEDS: Azithromycin 500 MG in Sodium Chloride 0.9% 250 ML IV SCH (00:50)
[2024-01-07] MEDS: Dexamethasone 4 MG/ML SDV IVPUSH SCH ×2 (00:53→01:00)
[2024-01-07] MEDS: REMDESIVIR 200 MG in Sodium Chloride 0.9% 250 ML IV ONE (02:04)
[2024-01-07] MEDS: cefTRIAXone 1 GM in Sodium Chloride 0.9% 50 ML IV SCH (03:19)
[2024-01-07 05:54] LABS: BASOPHILS ABSOLUTE AUTO 0.02 K/uL (0.00-0.20); BASOPHILS PERCENT AUTO 0.3 % (0.0-1.0); EOSINOPHILS ABSOLUTE AUTO 0.05 K/uL (0.00-0.45); EOSINOPHILS PERCENT AUTO 0.8 % (0.0-6.0); HEMATOCRIT 41.2 % (42.0-52.0); HEMOGLOBIN 13.5 g/dL (14.0-18.0); IMMATURE GRAN ABSOLUTE AUTO 0.01 K/uL (0.00-0.05); IMMATURE GRAN PERCENT AUTO 0.2 % (0.0-0.4); LYMPHOCYTES ABSOLUTE AUTO 1.12 K/uL (1.00-4.80); LYMPHOCYTES PERCENT AUTO 18.8 % (24.0-44.0); MEAN CORPUSCULAR HEMOGLOBIN 30.3 pg (28.0-32.0); MEAN CORPUSCULAR HGB CONC 32.8 g/dL (32.0-36.0); MEAN CORPUSCULAR VOLUME 92.4 fL (83.0-99.0); MEAN PLATELET VOLUME 9.1 fL (9.4-12.4); MONOCYTES ABSOLUTE AUTO 0.19 K/uL (0.00-0.80); MONOCYTES PERCENT AUTO 3.2 % (0.0-8.0); NEUTROPHILS ABSOLUTE AUTO 4.56 K/uL (1.80-7.70); NEUTROPHILS PERCENT AUTO 76.7 % (41.0-71.0); PLATELET COUNT,PLT 189 K/uL (150-400); RED BLOOD CELL COUNT 4.46 M/uL (4.52-5.90); WHITE BLOOD CELL COUNT,WBC 5.95 K/uL (3.9-11.3)
[2024-01-07 06:21] LABS: CALCIUM 8.7 mg/dL (8.5-10.1); CARBON DIOXIDE,CO2 29.2 mmol/L (21.0-32.0); CREATININE 1.5 mg/dL (0.8-1.3); EST CRCL DRUG DOSING (CG) 48.09 mL/min; POTASSIUM,K 4.7 mmol/L (3.5-5.1)
[2024-01-07] MEDS: Atenolol 25 MG Tab PO SCH (09:16)
[2024-01-07] MEDS: Apixaban 5 MG Tab PO SCH (09:17)
[2024-01-07 09:18] VITALS: PULSE 86
[2024-01-07 12:26] VITALS: BP 105/68
[2024-01-08] MEDS ORDERED: REMDESIVIR 100 MG in Sodium Chloride 0.9% 100 ML IV SCH
== END 2024-01-07 14:08 | disposition home or self-care (01) ==
LOC: MW.ED 19:23 → MW.MS 21:35
PROVIDERS: ADMIT Internal Medicine; ATTEND Internal Medicine
DX: U07.1 COVID-19 (principal); I48.19 Other persistent atrial fibrillation; E66.01 Morbid (severe) obesity due to excess calories; G47.30 Sleep apnea, unspecified; J44.9 Chronic obstructive pulmonary disease, unspecified; I10 Essential (primary) hypertension; I48.91 Unspecified atrial fibrillation; Z87.891 Personal history of nicotine dependence; Z79.01 Long term (current) use of anticoagulants; Z79.899 Other long term (current) drug therapy
CPT/HCPCS: 36415; 71045; 80048; 80053; 82803; 83605; 83735; 83880; 84484; 85025; 87040; 87635; 93005; 96361; 96365; 99285; A9270; J0248; J0456; J0696; J1100; J2543; J3490; J7030; J7050; 93010; 96367; 96375; G0378; U0002

== ENCOUNTER 2024-04-23 09:58 | Emergency (ER) | payer OTHER, MEDICARE ==
[2024-04-23] MEDS: Aspirin 81 MG Tab.Chew PO ONE (10:15)
[2024-04-23] MEDS: Sodium Chloride 0.9% 10 ML Syringe FLUSH PRN (10:15)
[2024-04-23 10:30] LABS: BASOPHILS ABSOLUTE AUTO 0.03 K/uL (0.00-0.20); BASOPHILS PERCENT AUTO 0.4 % (0.0-1.0); EOSINOPHILS ABSOLUTE AUTO 0.35 K/uL (0.00-0.45); EOSINOPHILS PERCENT AUTO 5.2 % (0.0-6.0); HEMOGLOBIN 14.8 g/dL (14.0-18.0); IMMATURE GRAN ABSOLUTE AUTO 0.01 K/uL (0.00-0.05); IMMATURE GRAN PERCENT AUTO 0.1 % (0.0-0.4); LYMPHOCYTES ABSOLUTE AUTO 2.24 K/uL (1.00-4.80); LYMPHOCYTES PERCENT AUTO 33.4 % (24.0-44.0); MEAN CORPUSCULAR HEMOGLOBIN 30.5 pg (28.0-32.0); MEAN CORPUSCULAR HGB CONC 33.6 g/dL (32.0-36.0); MEAN CORPUSCULAR VOLUME 90.7 fL (83.0-99.0); MONOCYTES ABSOLUTE AUTO 0.56 K/uL (0.00-0.80); MONOCYTES PERCENT AUTO 8.3 % (0.0-8.0); NEUTROPHILS ABSOLUTE AUTO 3.52 K/uL (1.80-7.70); NEUTROPHILS PERCENT AUTO 52.6 % (41.0-71.0); PLATELET COUNT,PLT 201 K/uL (150-400); RED BLOOD CELL COUNT 4.85 M/uL (4.52-5.90); WHITE BLOOD CELL COUNT,WBC 6.71 K/uL (3.9-11.3)
[2024-04-23 11:10] LABS: A/G RATIO 1.2 (0.9-1.6); ALBUMIN 3.6 g/dL (3.4-5.0); BILIRUBIN TOTAL 0.8 mg/dL (0.2-1.0); CALCIUM 9.4 mg/dL (8.5-10.1); CARBON DIOXIDE,CO2 31.7 mmol/L (21.0-32.0); CREATININE 1.3 mg/dL (0.8-1.3); EST CRCL DRUG DOSING (CG) 53.89 mL/min; INR 1.08 (0.86-1.11); MAGNESIUM 1.9 mg/dL (1.8-2.4); POTASSIUM,K 5.2 mmol/L (3.5-5.1); PROTEIN TOTAL,TP 6.7 g/dL (6.4-8.2)
[2024-04-23] MEDS: Iopamidol 755 MG/ML 500 ML Multipack Bottle IVPUSH STA (12:46)
[2024-04-23 14:41] VITALS: BP 126/73
[2024-04-23 15:37] VITALS: PULSE 57
== END 2024-04-23 15:37 | disposition home or self-care (01) ==
LOC: MW.ED 09:58
DX: I48.91 Unspecified atrial fibrillation (principal); R91.1 Solitary pulmonary nodule; J44.9 Chronic obstructive pulmonary disease, unspecified; Z90.49 Acquired absence of other specified parts of digestive tract; Z87.891 Personal history of nicotine dependence; Z86.012 Personal history of benign carcinoid tumor; Z79.01 Long term (current) use of anticoagulants; Z79.899 Other long term (current) drug therapy
CPT/HCPCS: 36415; 71045; 71260; 80053; 83690; 83735; 83880; 84484; 85025; 85610; 93005; 99285; A9270; Q9967

== ENCOUNTER 2024-07-25 17:45 | Emergency (ER) | payer MEDICARE, OTHER ==
[2024-07-25] MEDS ORDERED: Sodium Chloride 0.9% 10 ML Syringe FLUSH PRN (18:46)
[2024-07-25] MEDS ORDERED: Sodium Chloride 0.9% 2.5 ML Syringe FLUSH PRN (18:46)
[2024-07-25 19:10] LABS: BASOPHILS ABSOLUTE AUTO 0.05 K/uL (0.00-0.20); BASOPHILS PERCENT AUTO 0.7 % (0.0-1.0); EOSINOPHILS ABSOLUTE AUTO 0.43 K/uL (0.00-0.45); EOSINOPHILS PERCENT AUTO 6.3 % (0.0-6.0); HEMATOCRIT 36.3 % (42.0-52.0); HEMOGLOBIN 12.8 g/dL (14.0-18.0); IMMATURE GRAN ABSOLUTE AUTO 0.01 K/uL (0.00-0.05); IMMATURE GRAN PERCENT AUTO 0.1 % (0.0-0.4); LYMPHOCYTES ABSOLUTE AUTO 1.75 K/uL (1.00-4.80); LYMPHOCYTES PERCENT AUTO 25.5 % (24.0-44.0); MEAN CORPUSCULAR HEMOGLOBIN 29.6 pg (28.0-32.0); MEAN CORPUSCULAR HGB CONC 35.3 g/dL (32.0-36.0); MONOCYTES ABSOLUTE AUTO 0.56 K/uL (0.00-0.80); MONOCYTES PERCENT AUTO 8.2 % (0.0-8.0); NEUTROPHILS ABSOLUTE AUTO 4.05 K/uL (1.80-7.70); NEUTROPHILS PERCENT AUTO 59.2 % (41.0-71.0); PLATELET COUNT,PLT 193 K/uL (150-400); RED BLOOD CELL COUNT 4.32 M/uL (4.52-5.90); WHITE BLOOD CELL COUNT,WBC 6.85 K/uL (3.9-11.3)
[2024-07-25] MEDS: Sodium Chloride 0.9% 1,000 ML IV STA (19:11)
[2024-07-25 19:31] LABS: A/G RATIO 0.7 (0.9-1.6); BILIRUBIN TOTAL 1.4 mg/dL (0.2-1.0); CARBON DIOXIDE,CO2 27.1 mmol/L (21.0-32.0); CREATININE 1.8 mg/dL (0.8-1.3); EST CRCL DRUG DOSING (CG) 38.32 mL/min; POTASSIUM,K 3.7 mmol/L (3.5-5.1); PROTEIN TOTAL,TP 7.2 g/dL (6.4-8.2)
[2024-07-25 19:56] LABS: APPEARANCE,URINE HAZY; BILIRUBIN,URINE SMALL (NEGATIVE); COLOR,URINE YELLOW; GLUCOSE,URINE NEGATIVE (NEGATIVE); KETONES,URINE NEGATIVE (NEGATIVE); LEUKOCYTE ESTERASE,URINE NEGATIVE (NEGATIVE); NITRITE,URINE NEGATIVE (NEGATIVE); OCCULT BLOOD,URINE TRACE-INTACT (NEGATIVE); PH,URINE 5.5 (5.0-8.0); PROTEIN,URINE TRACE mg/dL (NEGATIVE)
[2024-07-25 20:06] LABS: BACTERIA,URINE FEW (NEGATIVE); EPITHELIAL CELLS,URINE NOT SEEN (NONE-FEW); MUCUS,URINE MODERATE (NONE-MOD)
[2024-07-25 20:06] LABS: LACTIC ACID 0.9 mmol/L (0.4-2.0)
[2024-07-25] MEDS: Iopamidol 755 MG/ML 500 ML Multipack Bottle IVPUSH ONE (20:18)
[2024-07-25 21:04] VITALS: BP 148/82; PULSE 79
[2024-07-25] MEDS: Doxycycline 100 MG Cap PO ONE (21:12)
== END 2024-07-25 21:23 | disposition home or self-care (01) ==
LOC: MW.ED 17:45
DX: J18.9 Pneumonia, unspecified organism (principal); I48.91 Unspecified atrial fibrillation; J44.9 Chronic obstructive pulmonary disease, unspecified; Z87.891 Personal history of nicotine dependence; Z79.899 Other long term (current) drug therapy; Z79.01 Long term (current) use of anticoagulants; Z75.8 Other problems related to medical facilities and other health care
CPT/HCPCS: 36415; 71275; 80053; 81001; 83605; 85025; 87040; 87428; 96360; 99285; A9270; J7030; Q9967; 99283